=== PATIENT | male | born 1950 | race Two or more races ===

== ENCOUNTER 2023-08-20 08:12 | Outpatient (CLI) | payer OTHER | END 2023-08-20 08:14 | disposition home or self-care (01) | LOC: SONOGRAMA 08:12 | PROVIDERS: ATTEND Pathology Anatomic Pathology & Clinical Pathology | DX: D11.0 Benign neoplasm of parotid gland (principal); D37.030 Neoplasm of uncertain behavior of the parotid salivary glands ==